=== PATIENT | female | born 1970 | race Caucasian/White ===

== ENCOUNTER 2023-05-19 08:56 | Outpatient (CLI) | payer BC, SELFPAY ==
[2023-05-19 15:14] LABS: HIV 1/2/P24 Combo Screen* Negative (Negative)
[2023-05-19 17:39] LABS: Chlamydia DNA Amplified* NOT DETECTED (No Detected); GC DNA Amplified* NOT DETECTED (No Detected)
== END 2023-05-19 08:57 | disposition home or self-care (01) ==
PROVIDERS: PCP Physician Assistant Medical; Visit Provider Physician Assistant Medical
DX: Z00.00 Encounter for general adult medical examination without abnormal findings (principal); R79.89 Other specified abnormal findings of blood chemistry; N95.0 Postmenopausal bleeding; R73.09 Other abnormal glucose; E78.5 Hyperlipidemia, unspecified; F41.9 Anxiety disorder, unspecified; R14.0 Abdominal distension (gaseous); R42 Dizziness and giddiness
CPT/HCPCS: 80053; 80061; 82306; 82607; 82784; 83001; 83516; 83690; 84439; 84443; 86703; 86803; 87491; 87591

== ENCOUNTER 2023-06-17 07:02 | Outpatient (CLI) | payer BC, SELFPAY ==
--- NOTE | 2023-06-17 07:15 | CRLHL7_ITS ---
For Patients: As a result of the Century Cures Act, medical imaging exams and procedure reports are released immediately into your electronic medical record. You may view this report before your referring provider. If you have questions, please contact your health care provider. Indication: Neck pain. Technique: 2D and 3D [id number] acquisitions. MIP reconstructions with rotational presentations. No IV contrast. Comparison: None available Findings: Both carotid bifurcations have a normal MRA appearance. No evidence for hemodynamically significant stenosis in the included segments of the internal carotid arteries by NASCET criteria. The cervical vertebral arteries are segmentally visualized and patent where seen. The aortic arch, great vessel origins and proximal subclavian arteries are not included on this non gadolinium exam. Impression: 1. No evidence for hemodynamically significant ICA stenosis by NASCET criteria. 2. No evidence for carotid or vertebral artery dissection involving the visualized segments of these vessels. Dictated by Fer Tapia MD @ 06/17/2023 1:24:04 PM (Electronically Signed)
--- NOTE | 2023-06-17 08:00 | CRLHL7_ITS ---
For Patients: As a result of the Century Cures Act, medical imaging exams and procedure reports are released immediately into your electronic medical record. You may view this report before your referring provider. If you have questions, please contact your health care provider. Indication: Neck pain. Technique: T2, T1 and STIR sagittal as well as gradient echo axial sequences were obtained. No IV contrast. Comparison: None available. Findings: Alignment is anatomic. No fracture or worrisome bone lesion identified. No high grade central canal stenosis. No spinal cord signal abnormalities are identified. No gross paraspinal pathology is identified. Craniocervical junction and C1-C2: Unremarkable, with a patent foramen magnum. C2-3: The disc and facets are negative. The foramina are patent. C3-4: The disc and facets are negative. The foramina are patent. C4-5: Tiny central disc herniation. Low-grade bilateral facet and generalized disc degenerative changes. The foramina are patent. C5-6: Small central disc herniation. The facets are negative. The foramina are patent. C6-7: Moderate-sized shallow left central disc osteophyte complex which abuts the ventral surface of the cord and contributes to potential impingement on the left C7 root. C7-T1: Minor facet degenerative changes. The disc is negative. The foramina are patent. Impression: 1. At C6-7 there is a moderate size shallow left central disc osteophyte complex with potential impingement on the left C7 nerve root. 2. Widely scattered low-grade spondylosis elsewhere. Dictated by Fer Tapia MD @ 06/17/2023 1:46:46 PM (Electronically Signed)
--- NOTE | 2023-06-17 09:45 | CRLHL7_ITS ---
For Patients: As a result of the Century Cures Act, medical imaging exams and procedure reports are released immediately into your electronic medical record. You may view this report before your referring provider. If you have questions, please contact your health care provider. INDICATION: Postmenopausal bleeding COMPARISON: none TECHNIQUE: 2D wisdom scale and color Doppler images were acquired of the pelvis using a transabdominal and transvaginal approach. FINDINGS: Sonographic images demonstrate a normal size and smooth outer contour of the uterus. Uterus measures 8.1 cm in length by 6.0 cm in AP diameter by 4.5 cm in transverse dimension. The myometrium has a heterogeneous echotexture. Left-sided intramural fibroid is present posteriorly measuring 11 x 5 x 9 millimeters. Additional midline fundal fibroid is noted measuring 16 x 7 x 9 millimeters. The endometrial lining measures 5 mm in composite thickness. The right ovary measures 2.8 x 1.1 x 1.4 cm in size and the left ovary is not visualized. The right ovary demonstrates normal arterial and venous blood flow on color Doppler analysis. There are no suspicious fluid collections within the cul-de-sac. IMPRESSION: Two intramural fibroids measuring 1.1 cm and 1.6 cm. Endometrial thickness 5 millimeters. No endometrial fluid. Dictated by Chuckie Campbell MD @ 06/17/2023 9:36:57 AM (Electronically Signed)
== END 2023-06-17 07:03 | disposition home or self-care (01) ==
LOC: MRI 07:02
PROVIDERS: PCP Physician Assistant Medical; Visit Provider Physician Assistant Medical
DX: N95.0 Postmenopausal bleeding (principal); D25.1 Intramural leiomyoma of uterus; G89.29 Other chronic pain; M54.2 Cervicalgia; R42 Dizziness and giddiness; R93.89 Abnormal findings on diagnostic imaging of other specified body structures
CPT/HCPCS: 70547; 72141; 76830; 76856

== ENCOUNTER 2023-09-02 09:51 | Outpatient (CLI) | payer BC, SELFPAY ==
--- NOTE | 2023-09-02 10:15 | CRLHL7_ITS ---
For Patients: As a result of the Century Cures Act, medical imaging exams and procedure reports are released immediately into your electronic medical record. You may view this report before your referring provider. If you have questions, please contact your health care provider. BILATERAL SCREENING MAMMOGRAM WITH COMPUTER-AIDED DETECTION TECHNIQUE: CC and MLO views were obtained. These mammographic images have been obtained using full-field digital technique. These mammographic images were interpreted with the benefit of computer-aided detection. COMPARISON FILM: 02/26/22, 01/09/21. FINDINGS: There are scattered areas of fibroglandular density IMPRESSION: There is no radiographic evidence for malignancy. ASSESSMENT: BI-RADS Category 2: Benign RECOMMENDATION: Routine screening mammogram in 1 year. A lay language report of this examination will be provided to the patient. Chuckie Campbell M.D. Diagnostic Radiologist [email or web address] Transcribed: 1:15 p.mKashif sherwood/Dictated by: Chuckie Campbell MD @ 09/02/2023 11:37:00 AM (Electronically Signed)
== END 2023-09-02 09:52 | disposition home or self-care (01) ==
LOC: MAMMO 09:52
PROVIDERS: PCP Physician Assistant Medical; Visit Provider Physician Assistant Medical
DX: Z12.31 Encounter for screening mammogram for malignant neoplasm of breast (principal)
CPT/HCPCS: 77067

== ENCOUNTER 2023-09-21 11:15 | Outpatient (RCR) | payer BC, SELFPAY | END 2024-01-19 23:59 | disposition home or self-care (01) | PROVIDERS: PCP Physician Assistant Medical; Visit Provider Orthopaedic Surgery Orthopaedic Surgery of the Spine | DX: M48.02 Spinal stenosis, cervical region (principal); M54.2 Cervicalgia; M79.602 Pain in left arm; Z74.09 Other reduced mobility; R29.3 Abnormal posture; R29.898 Other symptoms and signs involving the musculoskeletal system; Z51.89 Encounter for other specified aftercare | CPT/HCPCS: 97012; 97110; 97140; 97162 ==

== ENCOUNTER 2024-12-18 13:38 | Outpatient (CLI) | payer OTHER, SELFPAY | END 2024-12-18 13:39 | disposition home or self-care (01) | PROVIDERS: PCP Physician Assistant Medical; Visit Provider Physician Assistant Medical | DX: E78.5 Hyperlipidemia, unspecified (principal); R00.0 Tachycardia, unspecified; Z11.4 Encounter for screening for human immunodeficiency virus [HIV]; Z11.59 Encounter for screening for other viral diseases | CPT/HCPCS: 80053; 80061; 84443; 86376; 86703; 86803 ==

== ENCOUNTER 2025-06-02 10:32 | Outpatient (CLI) | payer OTHER, SELFPAY ==
[2025-06-02 15:15] LABS: Chlamydia DNA Amplified* NOT DETECTED (No Detected); GC DNA Amplified* NOT DETECTED (No Detected)
== END 2025-06-02 10:33 | disposition home or self-care (01) ==
LOC: LKVREF 10:33
PROVIDERS: PCP Physician Assistant Medical
DX: Z11.3 Encounter for screening for infections with a predominantly sexual mode of transmission (principal); R30.0 Dysuria
CPT/HCPCS: 87086; 87491; 87591

== ENCOUNTER 2025-10-11 11:41 | Outpatient (CLI) | payer OTHER, SELFPAY | END 2025-10-11 11:42 | disposition home or self-care (01) | PROVIDERS: PCP Physician Assistant Medical; Visit Provider Physician Assistant Medical | DX: R76.89 Other specified abnormal immunological findings in serum (principal); R79.89 Other specified abnormal findings of blood chemistry; F32.A Depression, unspecified | CPT/HCPCS: 82306; 83520; 84443; 86376 ==